=== PATIENT | female | born 1965 | race Caucasian/White ===

== ENCOUNTER → 2022-03-20 11:17 | Outpatient (BNVA) | payer OTHER, SELFPAY | PROVIDERS: PCP Internal Medicine; Visit Provider Internal Medicine | DX: Z13.89 Encounter for screening for other disorder (principal) ==

== ENCOUNTER 2022-03-30 11:11 | Outpatient (REF) | payer MEDICARE, SELFPAY ==
--- NOTE | ~2022-03-30 | MR_ITS ---
EXAMINATION: MR LUMBAR SPINE WITHOUT CONTRAST CLINICAL INFORMATION: Radiculopathy, lumbar region. COMPARISON: CT myelogram 04/27/2009. TECHNIQUE: MRI of the lumbar spine with sagittal T1, sagittal STIR, sagittal T2 FSE and axial T2 FSE images. Axial T1 images are not obtained secondary to back spasms during the exam and inability to obtain the sequences per the technologist note. FINDINGS: Vertebral body height, alignment and marrow signal are normal in appearance. The conus medullaris terminates at the level of L1. The conus medullaris and cauda equina are normal in appearance. T12-L1: Normal intervertebral discs. No central or foraminal stenoses. L1-L2: No central or foraminal stenoses. Normal intervertebral discs. L2-L3: No central or foraminal stenoses. Mild bilateral ligamentum flavum hypertrophy. Mild anterior broad-based disc-osteophyte complex. L3-L4: No central or foraminal stenoses. Normal intervertebral disc height. Mild bilateral ligamentum flavum hypertrophy and mild right facet hypertrophy. Mild anterior broad-based disc-osteophyte complex. L4-L5: Mild bilateral parasagittal disc protrusions. Moderate bilateral ligamentum flavum hypertrophy. Findings result in mild central stenosis. No associated nerve root impingements. No foraminal stenoses. L5-S1: No central or foraminal stenoses. Normal intervertebral discs. Mild bilateral lateral epidural lipomatosis which is not result in significant central foraminal stenoses. Mild bilateral facet and ligamentum flavum hypertrophy. MR/MR lumbar spine wo con IMPRESSION: At L4-L5 mild bilateral parasagittal disc protrusions and moderate bilateral ligamentum flavum hypertrophy resulting in mild central stenosis. No associated nerve root impingements. Elsewhere in the lumbar spine, mild multilevel spondylosis is present without associated nerve root impingement or significant central or foraminal stenoses.
== END 2022-03-30 11:12 | disposition home or self-care (01) ==
LOC: HO.MRI 11:11
PROVIDERS: PCP Internal Medicine; Visit Provider Internal Medicine
DX: M54.16 Radiculopathy, lumbar region (principal)
CPT/HCPCS: 72148